=== PATIENT | female | born 1985 | race Two or more races ===

== ENCOUNTER 2017-11-15 16:25 | Inpatient (IN) | payer OTHER ==
[2017-11-15] MEDS ORDERED: OXYTOCIN 30 UNIT/500 ML PREMIX 500 ML IV ×4 (17:15→19:15)
[2017-11-15] MEDS ORDERED: BUTORPHANOL 2 MG/ML VIAL. IV ×2 (17:15)
[2017-11-15] MEDS ORDERED: TERBUTALINE 1 MG/ML VIAL. SQ (17:15)
[2017-11-15] MEDS ORDERED: LIDOCAINE 1% PF 30 ML VIAL. INJ (17:15)
[2017-11-15] MEDS ORDERED: DINOPROSTONE 10 MG SUPP.VAG VG (17:15)
[2017-11-15] MEDS ORDERED: fentaNYL PF VIAL 100 MCG/2 ML VIAL IV ×2 (17:15)
[2017-11-15] MEDS ORDERED: ONDANSETRON PF 4 MG/2 ML VIAL. IV (17:15)
[2017-11-15] MEDS ORDERED: 0.9 % SODIUM CHLORIDE 10 ML DISP.SYRIN. IV ×4 (17:15→19:15)
[2017-11-15] MEDS: IV RINGERS,LACTATED 1000ML 1,000 ML IV (17:29)
[2017-11-15] MEDS: PENICILLIN G K 5,000,000 UNIT in IV DEXTROSE 5% 100 ML IV (17:43)
[2017-11-15 17:56] LABS: ADD MAN DIFF? NO
[2017-11-15 18:06] LABS: BASO % 0 % (0-3); EOS # 0.1 x10^3/uL (0.0-0.7); EOS % 1 % (0-3); HEMATOCRIT 35.4 % (36.0-47.0); HEMOGLOBIN 11.9 g/dL (12.0-15.5); LYMPH # 1.5 x10^3/uL (1.0-4.8); LYMPH % 15 % (24-48); MEAN CORPUSCULAR HEMOGLOBIN 27 pg (25-35); MEAN CORPUSCULAR HGB CONC 34 g/dL (31-37); MEAN CORPUSCULAR VOLUME 80 fL (79-100); MONO # 0.7 x10^3/uL (0.0-1.1); MONO % 7 % (0-9); NEUT # 7.7 x10^3uL (1.8-7.7); NEUT % 77 % (31-73); PLATELET COUNT 218 x10^3/uL (140-400); RED BLOOD COUNT 4.44 x10^6/uL (3.50-5.40); RED CELL DISTRIBUTION WIDTH 13.9 % (11.5-14.5); WHITE BLOOD COUNT 9.9 x10^3/uL (4.0-11.0)
[2017-11-15] MEDS ORDERED: MAG HYDROX/ALUMINUM HYD/SIMETH 30 ML ORAL.SUSP PO ×3 (19:00→19:15)
[2017-11-15] MEDS ORDERED: DOCUSATE SODIUM 100 MG CAPSULE. PO ×2 (19:00→19:15)
[2017-11-15] MEDS ORDERED: BENZOCAINE 20% TOPICAL AEROSOL SPRAY 57GM CAN. TP ×2 (19:00→19:15)
[2017-11-15] MEDS ORDERED: MMR per PROTOCOL. MC ×3 (19:00→19:15)
[2017-11-15] MEDS ORDERED: diphenhydrAMINE HCL 25 MG CAPSULE PO ×3 (19:00→19:15)
[2017-11-15] MEDS ORDERED: oxyCODONE/APAP 5/325 1 TAB TABLET PO ×2 (19:00→19:15)
[2017-11-15] MEDS ORDERED: PHENYLEPH/MINERAL OIL/PETROLAT RECTAL OINTMENT 28GM TUBE. RC ×3 (19:00→19:15)
[2017-11-15] MEDS ORDERED: ACETAMINOPHEN 325 MG TABLET. PO ×2 (19:00→19:15)
[2017-11-15] MEDS ORDERED: MAGNESIUM HYDROXIDE 2,400 MG/30 ML ORAL.SUSP. PO ×3 (19:00→19:15)
[2017-11-15] MEDS ORDERED: ZOLPIDEM 5 MG TABLET. PO ×3 (19:00→19:15)
[2017-11-15] MEDS ORDERED: HYDROCORTISONE 1% TOPICAL OINTMENT 30GM TUBE. TP ×3 (19:00→19:15)
[2017-11-15] MEDS ORDERED: SIMETHICONE 80 MG TAB.CHEW PO ×3 (19:00→19:15)
[2017-11-15] MEDS: IBUPROFEN 800 MG TABLET. PO (19:31)
[2017-11-15] MEDS: BENZOCAINE 20% TOPICAL AEROSOL SPRAY 57GM CAN. TP (19:31)
[2017-11-15] MEDS: OXYTOCIN 30 UNIT/500 ML PREMIX 500 ML IV (19:51)
[2017-11-15] MEDS ORDERED: PENICILLIN G K 2,500,000 UNIT in IV DEXTROSE 5% 50 ML IV (21:00)
[2017-11-16] MEDS ORDERED: IBUPROFEN 600 MG TABLET. PO ×3
[2017-11-16] MEDS: IBUPROFEN 800 MG TABLET. PO ×2 (05:05→15:12)
[2017-11-16 05:37] LABS: HEMATOCRIT 36.6 % (36.0-47.0)
[2017-11-16] MEDS ORDERED: FERROUS SULFATE 325 MG TABLET. PO ×2 (08:00)
[2017-11-16] MEDS: DOCUSATE SODIUM 100 MG CAPSULE. PO (08:33)
[2017-11-16] MEDS: ACETAMINOPHEN 325 MG TABLET. PO ×2 (08:33→15:12)
[2017-11-16] MEDS: FERROUS SULFATE 325 MG TABLET. PO ×2 (08:33→17:00)
[2017-11-17] MEDS: DOCUSATE SODIUM 100 MG CAPSULE. PO (08:29)
[2017-11-17] MEDS: oxyCODONE/APAP 5/325 1 TAB TABLET PO (08:30)
[2017-11-17] MEDS: IBUPROFEN 800 MG TABLET. PO (14:47)
[2017-11-18 07:15] LABS: RPR Non Reactive (Non Reactive)
== END 2017-11-17 16:35 | disposition home or self-care (01) | DRG 775 ==
LOC: 3 SO LND 16:25 → 3 NORTH 21:37
PROVIDERS: Obstetrics & Gynecology
PROC: 10907ZC Drainage of Amniotic Fluid, Therapeutic from Products of Conception, Via Natural or Artificial Opening (ICD-10-PCS; principal; 2017-11-15)
PROC: 10E0XZZ Delivery of Products of Conception, External Approach (ICD-10-PCS; 2017-11-15)
DX: O99.824 Streptococcus B carrier state complicating childbirth (principal); O69.81X0 Labor and delivery complicated by cord around neck, without compression, not applicable or unspecified; Z3A.40 40 weeks gestation of pregnancy; Z37.0 Single live birth; O80 Encounter for full-term uncomplicated delivery
CPT/HCPCS: 36415; 85014; 85025; 86593; 86850; 86900; 86901; 96365; 96366; 96367; G0378; G0379; J2540; J2590; J7120